=== PATIENT | female | born 1950 | race Caucasian/White ===

== ENCOUNTER 2016-12-19 06:21 | Emergency (ER) | payer BC ==
[2016-12-19] MEDS ORDERED: Sodium Chloride 0.9% 2.5 ML Syringe FLUSH PRN (06:33)
[2016-12-19] MEDS ORDERED: Ondansetron 4 MG/2 ML SDV IVPUSH ONE (06:33)
[2016-12-19] MEDS ORDERED: Ketorolac 30 MG/ML SDV IVPUSH ONE (06:33)
[2016-12-19] MEDS ORDERED: Sodium Chloride 0.9% 10 ML Syringe FLUSH PRN (06:33)
[2016-12-19] MEDS ORDERED: Sodium Chloride 0.9% 1,000 ML IV ONE (06:33)
[2016-12-19] MEDS ORDERED: diphenhydrAMINE 50 MG/ML SDV IVPUSH ONE (06:33)
--- NOTE | 2016-12-19 06:38 | EDM.PDOC ---
ED HPI GENERAL MEDICAL PROBLEM - General Chief Complaint: General Stated Complaint: DIZZY AND NAUSEATED Time Seen by Provider: 12/19/16 06:26 - History of Present Illness INITIAL COMMENTS - FREE TEXT/NARRATIVE: HISTORY AND PHYSICAL: History of present illness: The patient is a 66-year-old female with a history of hypothyroidism and breast cancer, which was treated with lumpectomy chemotherapy and radiation and which is in remission, who presents with sudden onset of dizziness and nausea. Patient states she woke at 4:30 this morning and got up to the bathroom and felt fine until she went back to bed and as she tried to lay down she had the sudden onset of the dizziness. It is not lightheadedness it is more of a spinning-like sensation and she feels nauseated but has not vomited yet. She says she said in the side of the bed and then try to lay down again and was able the to the overwhelming sensation of these symptoms. She also complains of a frontal headache but has no extremity weakness or neurosensory changes no neck or back pain and she did not fall recently. Earlier yesterday and last evening she felt fine and was in her usual state of good health without any systemic complaints. She has no history of sinus congestion fever chills cough runny nose or nasal pressure pain. Review of systems: As per history of present illness and below otherwise all systems reviewed and negative. Past medical history: As per history of present illness and as reviewed below otherwise noncontributory. Surgical history: As per history of present illness and as reviewed below otherwise noncontributory. Social history: No reported history of drug or alcohol abuse. Family history: As per history of present illness and as reviewed below otherwise noncontributory. Physical exam: General: Well-developed well-nourished overweight female who is nontoxic and prefers to sit up leaning on the wall with her eyes open rather than close. She prevents head movement and does not want to lie flat. HEENT: Atraumatic, normocephalic, pupils reactive, negative for conjunctival pallor or scleral icterus, mucous membranes moist, throat clear, neck supple, nontender, trachea midline. There is a slight nystagmus with fast component to the right the patient feels somewhat symptomatic with eye movement and head movement. There is no cervical adenopathy or nuchal rigidity Lungs: Clear to auscultation, breath sounds equal bilaterally, chest nontender. Heart: S1S2, regular, negative for clicks, rubs, or JVD. Abdomen: Soft, nondistended, nontender. Negative for masses or hepatosplenomegaly. Negative for costovertebral tenderness. Pelvis: Stable nontender. Genitourinary: Deferred. Rectal: Deferred. Extremities: Atraumatic, negative for cords or calf pain. Neurovascular unremarkable. Neuro: Awake, alert, oriented. Cranial nerves II through XII unremarkable. Cerebellum unremarkable. Motor and sensory unremarkable throughout. Exam nonfocal. Dorsi and plantar flexion is 5/5 inclusive of the great toe and there is no drift weakness or sensory changes grossly throughout all extremities. Diagnostics: EKG CBC CMP troponin TSH UA CT scan of the head Therapeutics: IV fluids Zofran Toradol Benadryl Antivert 0720: Patient states she no longer feels nauseated and she was able to do the CAT scan with minimal dizziness and she is overall much improved. We'll continue to monitor the testing results and reevaluate for disposition 0805: The patient continues to improve and I have discussed with her care plan which could either include going home with medications, Antivert Zofran and over -the-counter Benadryl with followup with primary care or observation admission . The patient currently is declining admission at this time and would like to try to go home and have advised her and reasons to return and we'll give her prescriptions for her medications. Impression: Acute vertigo improving Definitive disposition and diagnosis as appropriate pending reevaluation and review of above. headache Pain Score (Numeric/FACES): 4 - Related Data Allergies Allergy/AdvReac Type Severity Reaction Status Date / Time rag weed Allergy Sneezing Uncoded 08/06/15 23:20 Home Meds: Home Meds Aspirin 81 mg PO BRK 08/06/15 [History] Levothyroxine 25 mcg PO ASDIRECTED 08/06/15 [History] Anastrozole [Anastrozole] 1 mg PO DAILY 12/19/16 [History] Social & Family History - Tobacco Use Smoking Status *Q: Never Smoker Second Hand Smoke Exposure: No - Recreational Drug Use Recreational Drug Use: No ED ROS GENERAL - Review of Systems Review Of Systems: ROS reveals no pertinent complaints other than HPI. ED EXAM, GENERAL - Physical Exam Exam: See Below (See dictation) Course - Vital Signs Last Recorded V/S: Last Vital Signs Temp 36 C 12/19/16 06:29 Pulse 78 12/19/16 06:29 Resp 18 12/19/16 06:29 BP 132/66 12/19/16 06:29 Pulse Ox 98 12/19/16 06:29 - Orders/Labs/Meds Orders: Active Orders 24 hr Category Date Time Status EKG Documentation Completion [RC] STAT Care 12/19/16 06:32 Active Head wo Cont [CT] Stat Exams 12/19/16 06:33 Taken UA W/MICROSCOPIC [URIN] Stat Lab 12/19/16 06:33 Uncollected Sodium Chloride 0.9% [Saline Flush] Med 12/19/16 06:33 Active 10 ml FLUSH ASDIRECTED PRN Sodium Chloride 0.9% [Saline Flush] Med 12/19/16 06:33 Active 2.5 ml FLUSH ASDIRECTED PRN Saline Lock Insert [OM.PC] Stat Oth 12/19/16 06:32 Ordered Medication Orders Sodium Chloride (Saline Flush) 10 ml FLUSH ASDIRECTED PRN PRN Reason: Keep Vein Open Last Admin: 12/19/16 06:46 Dose: 10 ml Sodium Chloride (Saline Flush) 2.5 ml FLUSH ASDIRECTED PRN PRN Reason: Keep Vein Open Last Admin: 12/19/16 06:46 Dose: 2.5 ml Labs: Laboratory Tests 12/19/16 12/19/16 12/19/16 Range/Units 06:42 06:42 06:42 WBC 8.34 (4.0-11.0) K/uL RBC 5.11 (4.30-5.90) M/uL Hgb 13.7 (12.0-16.0) g/dL Hct 42.6 (36.0-46.0) % MCV 83.4 (80.0-98.0) fL MCH 26.8 L (27.0-32.0) pg MCHC 32.2 (31.0-37.0) g/dL RDW Std Deviation 41.9 (28.0-62.0) fl RDW Coeff of Román 14 (11.0-15.0) % Plt Count 237 (150-400) K/uL MPV 10.20 (7.40-12.00) fL Neut % (Auto) 68.8 (48.0-80.0) % Lymph % (Auto) 24.5 (16.0-40.0) % Morton % (Auto) 4.1 (0.0-15.0) % Eos % (Auto) 2.4 (0.0-7.0) % Baso % (Auto) 0.2 (0.0-1.5) % Neut # (Auto) 5.7 (1.4-5.7) K/uL Lymph # (Auto) 2.0 (0.6-2.4) K/uL Morton # (Auto) 0.3 (0.0-0.8) K/uL Eos # (Auto) 0.2 (0.0-0.7) K/uL Baso # (Auto) 0.0 (0.0-0.1) K/uL Nucleated RBC % 0.0 /100WBC Nucleated RBCs # 0 K/uL Sodium 140 (136-146) mmol/L Potassium 4.3 (3.5-5.1) mmol/L Chloride 104 (98-110) mmol/L Carbon Dioxide 27 (21-31) mmol/L BUN 21 (6.0-23.0) mg/dL Creatinine 0.9 (0.6-1.5) mg/dL Est Cr Clr Drug Dosing 55.33 mL/min Estimated GFR (MDRD) > 60.0 ml/min Glucose 128 H (60-110) mg/dL Calcium 10.5 (8.8-10.8) mg/dL Total Bilirubin 1.1 (0.1-1.5) mg/dL AST 19 (5-40) IU/L ALT 25 (8-54) IU/L Alkaline Phosphatase 72 (40-150) Troponin I < 0.10 (0.0-0.29) NG/ML Total Protein 7.2 (6.0-8.0) g/dL Albumin 4.2 (3.4-4.8) g/dL Globulin 3.0 (2.0-3.5) g/dL Albumin/Globulin Ratio 1.4 (1.3-2.8) TSH 3rd Generation 1.38 (0.47-5.0) uIU/mL Meds: Medications Generic Name Dose Route Start Last Admin Trade Name Freq PRN Reason Stop Dose Admin Sodium Chloride 10 ml 12/19/16 06:33 12/19/16 06:46 Saline Flush FLUSH 10 ml ASDIRECTED PRN Administration Keep Vein Open Sodium Chloride 2.5 ml 12/19/16 06:33 12/19/16 06:46 Saline Flush FLUSH 2.5 ml ASDIRECTED PRN Administration Keep Vein Open Discontinued Medications Generic Name Dose Route Start Last Admin Trade Name Robert PRN Reason Stop Dose Admin Diphenhydramine HCl 50 mg 12/19/16 06:33 12/19/16 06:45 Benadryl IVPUSH 12/19/16 06:34 50 mg ONETIME ONE Administration Sodium Chloride 1,000 mls @ 999 mls/hr 12/19/16 06:33 12/19/16 06:44 Normal Saline IV 12/19/16 07:33 999 mls/hr STAT ONE Administration Ketorolac Tromethamine 30 mg 12/19/16 06:33 12/19/16 06:45 Toradol IVPUSH 12/19/16 06:34 30 mg ONETIME ONE Administration Meclizine HCl 25 mg 12/19/16 07:55 Antivert PO 12/19/16 07:56 ONETIME ONE Ondansetron HCl 4 mg 12/19/16 06:33 12/19/16 06:45 Zofran IVPUSH 12/19/16 06:34 4 mg ONETIME ONE Administration Departure - Departure Time of Disposition: 08:09 Disposition: Home, Self-Care 01 Condition: good Clinical Impression: Vertigo Forms: ED Department Discharge Additional Instructions: The following information is given to patients seen in the emergency department who are being discharged to home. This information is to outline your options for follow-up care. We provide all patients seen in our emergency department with a follow-up referral. The need for follow-up, as well as the timing and circumstances, are variable depending upon the specifics of your emergency department visit. If you don't have a primary care physician on staff, we will provide you with a referral. We always advise you to contact your personal physician following an emergency department visit to inform them of the circumstance of the visit and for follow-up with them and/or the need for any referrals to a consulting specialist. The emergency department will also refer you to a specialist when appropriate. This referral assures that you have the opportunity for followup care with a specialist. All of these measure are taken in an effort to provide you with optimal care, which includes your followup. Under all circumstances we always encourage you to contact your private physician who remains a resource for coordinating your care. When calling for followup care, please make the office aware that this follow-up is from your recent emergency room visit. If for any reason you are refused follow-up, please contact the [facility] emergency department at and ask to speak to the emergency department charge nurse. [facility] Primary care- [place] [address] Please rest and use medications as prescribed. Please call and followup in the clinic as we discussed in the next one to 2 days and return here as needed and as discussed. Do all body position changes slowly and sleep with slight incline to your head. - My Orders Last 24 Hours: My Active Orders 12/19/16 06:32 EKG Documentation Completion [RC] STAT Saline Lock Insert [OM.PC] Stat 12/19/16 06:33 Head wo Cont [CT] Stat UA W/MICROSCOPIC [URIN] Stat Sodium Chloride 0.9% [Saline Flush] 10 ml FLUSH ASDIRECTED PRN Sodium Chloride 0.9% [Saline Flush] 2.5 ml FLUSH ASDIRECTED PRN - Assessment/Plan Last 24 Hours: My Active Orders 12/19/16 06:32 EKG Documentation Completion [RC] STAT Saline Lock Insert [OM.PC] Stat 12/19/16 06:33 Head wo Cont [CT] Stat UA W/MICROSCOPIC [URIN] Stat Sodium Chloride 0.9% [Saline Flush] 10 ml FLUSH ASDIRECTED PRN Sodium Chloride 0.9% [Saline Flush] 2.5 ml FLUSH ASDIRECTED PRN
[2016-12-19 07:22] LABS: CHLORIDE,CL 104 mmol/L (98-110); SODIUM,NA 140 mmol/L (136-146)
[2016-12-19] MEDS ORDERED: Meclizine 25 MG Tab PO ONE (07:55)
[2016-12-19 08:34] VITALS: BP 124/69
--- NOTE | 2016-12-19 14:39 | CT ---
EXAM DATE: 12/19/16 PATIENT'S AGE: 66 Patient: CARYN LAMB Facility: [place], [place] Site . Site : 1950 Study: CT Head [id number]/19/2017 7:10:51 AM Ordering Physician: Inez Haney Final Report: HISTORY: Pain, dizziness. TECHNIQUE: The head was scanned in the axial plane at 3 mm intervals without IV contrast. Reconstructed bone windows obtained as well as sagittal and coronal reconstructions. FINDINGS: The frontal sinuses are hypoplastic. The remainder of the visualized paranasal sinuses and mastoid air cells are well aerated. The calvarium is intact. The ventricles and sulci are mildly enlarged. Patchy periventricular and subcortical white matter hypodensity is present. No intra-axial mass, edema or midline shift is identified. No extra-axial fluid collections are seen. Childers- white differentiation is preserved. IMPRESSION: 1. Mild atrophy. 2. Periventricular and subcortical white matter hypodensity most consistent with small vessel ischemic change. 3. No acute intracranial pathology or bleed. Dictated by Mar Cabrera MD @ 12/19/2016 7:14:15 AM Dictated by: Mar Cabrera MD @ 12/19/2016 07:14:18 (Electronic Signature) Report Signed by Proxy and Original Signed Document filed in the Medical Record. [facility]
== END 2016-12-19 08:32 | disposition home or self-care (01) ==
LOC: MW.ED 06:21
DX: R42 Dizziness and giddiness (principal); C50.919 Malignant neoplasm of unspecified site of unspecified female breast; E03.9 Hypothyroidism, unspecified; Z79.899 Other long term (current) drug therapy
CPT/HCPCS: 36415; 70450; 80053; 84443; 84484; 85025; 93005; 96361; 96374; 96375; 99284; A9270; J1200; J1885; J2405; J7040

== ENCOUNTER 2018-11-14 07:54 | Emergency (ER) | payer OTHER, BC ==
--- NOTE | 2018-11-14 08:11 | EDM.PDOC ---
ED HPI GENERAL MEDICAL PROBLEM - General Chief Complaint: Upper Extremity Injury/Pain Stated Complaint: fall Time Seen by Provider: 11/14/18 08:05 Source of Information: Reports: Patient History Limitations: Reports: No Limitations - History of Present Illness INITIAL COMMENTS - FREE TEXT/NARRATIVE: History of present illness: [] Patient slipped on the ice in the parking lot prior to arrival mostly on her right knee and left arm. She complains of pain radiating to her left shoulder and neck. Patient denies any loss of consciousness, numbness, tingling or headache. Patient ambulated into the ED. Review of systems: As per history of present illness and below otherwise all systems reviewed and negative. st medical history: As per history of present illness and as reviewed below otherwise noncontributory. Surgical history: As per history of present illness and as reviewed below otherwise noncontributory. Social history: No reported history of drug or alcohol abuse. Family history: As per history of present illness and as reviewed below otherwise noncontributory. Physical exam: General: Well developed, well nourished in NAD HEENT: Atraumatic, normocephalic, pupils reactive, negative for conjunctival pallor or scleral icterus, mucous membranes moist, throat clear, neck supple, tender, midline lower cervical vertebrae, left neck and trapezius tenderness to palpation, trachea midline. Lungs: Clear to auscultation, breath sounds equal bilaterally, chest nontender. Heart: S1S2, regular, negative for clicks, rubs, or JVD. Abdomen: NABS, Soft, nondistended, nontender. Negative for masses or hepatosplenomegaly. Negative for costovertebral tenderness. Pelvis: Stable nontender. Genitourinary: Deferred. Rectal: Deferred. Extremities: Abrasion and contusion to left dorsal hand, left shoulder tenderness, negative for cords or calf pain. Neurovascular unremarkable. Neuro: Awake, alert, oriented. Cranial nerves II through XII unremarkable. Cerebellum unremarkable. Motor and sensory unremarkable throughout. Exam nonfocal. Skin:warm and dry Diagnostics: C-spine cervical neck, left shoulder, left hand, right knee Therapeutics: Tetanus Updated, declined pain medication, arm sling ED Course: Stable Impression: Fall, left hand abrasion, left shoulder contusion, right knee contusion, cervical strain Prescriptions: Flexeril, diclofenac Plan: Take meds as directed, follow up with your primary care physician, return to ER if symptoms worsen or change. Definitive disposition and diagnosis as appropriate pending reevaluation and review of above. left arm Pain Score (Numeric/FACES): 9 - Related Data Allergies Allergy/AdvReac Type Severity Reaction Status Date / Time codeine Allergy Nausea and Verified 11/14/18 08:04 Vomiting rag weed Allergy Sneezing Uncoded 11/14/18 08:04 Home Meds: Home Meds Aspirin 81 mg PO BRK 08/06/15 [History] Levothyroxine 25 mcg PO ASDIRECTED 08/06/15 [History] Cyclobenzaprine [Flexeril] 10 mg PO BID PRN #12 tab 11/14/18 [Rx] Diclofenac Sodium [Voltaren] 75 mg PO BIDMEALS PRN #20 tab.cr 11/14/18 [Rx] Tamoxifen Citrate 20 mg PO DAILY 11/14/18 [History] Past Medical History HEENT History: Reports: None Cardiovascular History: Reports: None Respiratory History: Reports: None Gastrointestinal History: Reports: None Genitourinary History: Reports: None RANGE AID History: Reports: Musculoskeletal History: Reports: None Neurological History: Reports: None Psychiatric History: Reports: None Endocrine/Metabolic History: Reports: Hypoparathyroidism Hematologic History: Reports: None Immunologic History: Reports: None Oncologic (Cancer) History: Reports: Breast Dermatologic History: Reports: None - Infectious Disease History Infectious Disease History: Reports: None - Past Surgical History HEENT Surgical History: Reports: Tonsillectomy Oncologic Surgical History: Reports: Lumpectomy Social & Family History - Family History Family Medical History: Noncontributory - Caffeine Use Caffeine Use: Reports: Tea Review of Systems - Review of Systems Review Of Systems: ROS reveals no pertinent complaints other than HPI. ED EXAM, GENERAL - Physical Exam Exam: See Below (The history of present illness) Course - Vital Signs Last Recorded V/S: Last Vital Signs Temp 95.1 F L 11/14/18 08:04 Pulse 82 11/14/18 08:04 Resp 18 11/14/18 08:04 BP 188/70 H 11/14/18 08:04 Pulse Ox 95 11/14/18 08:04 - Orders/Labs/Meds Orders: Active Orders 24 hr Category Date Time Status Vaccines to be Administered [RC] PER UNIT ROUTINE Care 11/14/18 08:14 Active Meds: Medications Discontinued Medications Generic Name Dose Route Start Last Admin Trade Name Freq PRN Reason Stop Dose Admin Diphtheria/Tetanus/Acell Pertussis 0.5 ml 11/14/18 08:14 11/14/18 08:19 Adacel IM 11/14/18 08:15 0.5 ml .ONCE ONE Administration Ketorolac Tromethamine 30 mg 11/14/18 10:02 11/14/18 10:23 Toradol IM 11/14/18 10:03 Not Given ONETIME ONE Departure - Departure Time of Disposition: 10:43 Disposition: Home, Self-Care 01 Condition: Good Clinical Impression: Abrasion of left hand Qualifiers: Encounter type: initial encounter Qualified Code(s): S60.512A - Abrasion of left hand, initial encounter Fall Qualifiers: Encounter type: initial encounter Qualified Code(s): W19.XXXA - Unspecified fall, initial encounter Shoulder contusion Qualifiers: Encounter type: initial encounter Laterality: left Qualified Code(s): S40.012A - Contusion of left shoulder, initial encounter - Discharge Information *PRESCRIPTION DRUG MONITORING PROGRAM REVIEWED*: Not Applicable *COPY OF PRESCRIPTION DRUG MONITORING REPORT IN PATIENT [place]: Not Applicable Prescriptions: Cyclobenzaprine [Flexeril] 10 mg PO BID PRN #12 tab PRN Reason: Pain Diclofenac Sodium [Voltaren] 75 mg PO BIDMEALS PRN #20 tab.cr PRN Reason: Pain Referrals: PCP,None [Primary Care Provider] - Forms: ED Department Discharge Additional Instructions: The following information is given to patients seen in the emergency department who are being discharged to home. This information is to outline your options for follow-up care. We provide all patients seen in our emergency department with a follow-up referral. The need for follow-up, as well as the timing and circumstances, are variable depending upon the specifics of your emergency department visit. If you don't have a primary care physician on staff, we will provide you with a referral. We always advise you to contact your personal physician following an emergency department visit to inform them of the circumstance of the visit and for follow-up with them and/or the need for any referrals to a consulting specialist. The emergency department will also refer you to a specialist when appropriate. This referral assures that you have the opportunity for follow-up care with a specialist. All of these measure are taken in an effort to provide you with optimal care, which includes your follow-up. Under all circumstances we always encourage you to contact your private physician who remains a resource for coordinating your care. When calling for follow-up care, please make the office aware that this follow-up is from your recent emergency room visit. If for any reason you are refused follow-up, please contact the [facility] Emergency Department at and asked to speak to the emergency department charge nurse. [facility] Primary [facility] [address] [place] [address] - My Orders Last 24 Hours: My Active Orders 11/14/18 08:14 Vaccines to be Administered [RC] PER UNIT ROUTINE - Assessment/Plan Last 24 Hours: My Active Orders 11/14/18 08:14 Vaccines to be Administered [RC] PER UNIT ROUTINE
[2018-11-14] MEDS ORDERED: Diphtheria,Pertussis(Acell),Tetanus Vaccine 0.5 ML Syringe IM ONE (08:14)
--- NOTE | 2018-11-14 09:19 | CR ---
EXAMINATION: Right knee HISTORY: Pain COMPARISON: None TECHNIQUE: 3 views FINDINGS/IMPRESSION: Mild joint space narrowing is noted within the lateral compartment with osteophyte formation within all 3 compartments. There is no fracture or acute osseous abnormality. Trace suprapatellar joint fluid.
--- NOTE | 2018-11-14 09:33 | CT ---
EXAMINATION: CT cervical spine HISTORY: Pain COMPARISON: None TECHNIQUE: Axial CT imaging obtained through the cervical spine without contrast. Coronal and sagittal reconstructions obtained. FINDINGS: There is straightening of the normal cervical lordosis. The vertebral body heights appear maintained. Osteophyte formation and disc space narrowing noted at multiple levels. Small osteophyte disc complex noted C5-C6. No fracture or acute osseous abnormality is noted. Paravertebral soft tissues are normal. Lung apices are clear. IMPRESSION: 1. Degenerative changes noted without acute findings.
[2018-11-14] MEDS ORDERED: Ketorolac 30 MG/ML SDV IM ONE (10:02)
--- NOTE | 2018-11-14 10:18 | CR ---
EXAMINATION: Left hand HISTORY: Fall COMPARISON: None TECHNIQUE: 3 views FINDINGS/IMPRESSION: There is no acute osseous abnormality, dislocation, or fracture. Bone mineralization and joint spaces are preserved. No focal soft tissue swelling. Moderate osteoarthritic changes noted at the first CMC joint. Possible old scaphoid injury.
--- NOTE | 2018-11-14 10:18 | CR ---
EXAMINATION: Left shoulder HISTORY: Pain COMPARISON: None TECHNIQUE: 3 views FINDINGS/IMPRESSION: There is no acute osseous abnormality, dislocation, or fracture. Bone mineralization and joint spaces are preserved. Mild acromioclavicular osteoarthritic changes.
[2018-11-14 11:11] VITALS: BP 156/76
== END 2018-11-14 11:00 | disposition home or self-care (01) ==
LOC: MW.ED 07:54
DX: S16.1XXA Strain of muscle, fascia and tendon at neck level, initial encounter (principal); S60.222A Contusion of left hand, initial encounter; S80.01XA Contusion of right knee, initial encounter; S40.012A Contusion of left shoulder, initial encounter; W19.XXXA Unspecified fall, initial encounter; Z88.5 Allergy status to narcotic agent; Z91.048 Other nonmedicinal substance allergy status; Z23 Encounter for immunization
CPT/HCPCS: 72125; 72125-26; 73030-26-LT; 73030-LT; 73130-26-LT; 73130-LT; 73562-26-RT; 73562-RT; 90471; 90715; 99284-25